=== PATIENT | male | born 1940 | race African-American/Black ===

== ENCOUNTER 2022-08-03 11:57 | Emergency (ER) | payer MEDICARE, OTHER ==
[~2022-08-03] VITALS: Ht 180.3 cm; Wt 63.0 kg
[~2022-08-03 11:57] MED LIST: DILT240C92 PO; FLEC100T2 PO
[2022-08-03 12:47] LABS: BASOPHILS % 0.3 % (0.0-2.0); EOSINOPHILS % 5.3 % (0.0-5.0); HEMATOCRIT. 38.6 % (42.0-52.0); HEMOGLOBIN. 12.9 g/dL (14.0-18.0); LYMPHOCYTES % 17.3 % (20.0-50.0); MEAN CORPUSCULAR HEMOGLOBIN 31.6 pg (28.0-32.0); MEAN CORPUSCULAR VOLUME 95.1 fL (80.0-94.0); MEAN PLATELET VOLUME 7.5 fl (7.4-10.4); MONOCYTES % 8.9 % (2.0-8.0); NEUTROPHILS % 68.2 % (40.0-76.0); PLATELET 223 x1000/uL (130-400); RED BLOOD CELL COUNT 4.06 mill/uL (4.7-6.1); RED CELL DISTRIBUTION WIDTH 16.8 % (11.6-14.6)
[2022-08-03 12:57] LABS: CHLORIDE 108 mEq/L (98-107)
[2022-08-03 14:14] VITALS: BP 128/81
== END 2022-08-03 14:08 | disposition left against medical advice (07) ==
LOC: ER 11:57 → CANBEDREQ 08-05 17:58
DX: R00.0 Tachycardia, unspecified (principal); N17.9 Acute kidney failure, unspecified; I48.91 Unspecified atrial fibrillation; I10 Essential (primary) hypertension
CPT/HCPCS: 36415; 71045; 80053; 83880; 84484; 85025; 85610; 93005; 99285; Z7610